=== PATIENT | female | born 1955 | race Caucasian/White ===

== ENCOUNTER 2018-12-06 08:44 | Emergency (ER) | payer OTHER ==
[~2018-12-06] VITALS: Ht 144.8 cm; Wt 47.6 kg
[2018-12-06] MEDS ORDERED: CARDURA XL4 MG (09:03)
[2018-12-06] MEDS ORDERED: LISINOPRIL20 MG (09:03)
[2018-12-06] MEDS ORDERED: LASIX20 MG (09:03)
[2018-12-06] MEDS ORDERED: METFORMIN HCL500 MG (09:04)
[2018-12-06] MEDS ORDERED: TOPROL XL25 M1 (09:04)
== END 2018-12-06 11:23 | disposition home or self-care (01) ==
LOC: ER 08:44
DX: B34.9 Viral infection, unspecified (principal)

== ENCOUNTER 2019-05-18 13:48 | Emergency (ER) | payer OTHER ==
[~2019-05-18] VITALS: Ht 147.3 cm; Wt 47.6 kg
[~2019-05-18 13:48] MED LIST: CARDURA XL4 MG; LASIX20 MG; LISINOPRIL20 MG; METFORMIN HCL500 MG; TOPROL XL25 M1
== END 2019-05-18 20:09 | disposition home or self-care (01) ==
LOC: ER 13:48
DX: R05 Cough (principal)

== ENCOUNTER → 2019-06-16 | Emergency (ER) | payer OTHER ==
[~2019-06-16] VITALS: Ht 149.9 cm; Wt 47.2 kg
== END | disposition designated cancer center or children's hospital (05) ==
LOC: ER 16:53 → CPU-OBS 17:06 → ER 17:06
DX: I49.8 Other specified cardiac arrhythmias (principal); I51.7 Cardiomegaly